=== PATIENT | male | born 1970 | race Caucasian/White ===

== ENCOUNTER 2018-04-12 15:43 | Observation (INO) | payer OTHER ==
[~2018-04-12] VITALS: Ht 170.2 cm; Wt 84.1 kg
[~2018-04-12 15:43] MED LIST: ATOR-54 PO
[2018-04-12] MEDS ORDERED: SODIUM CHLORIDE 0.9% 1000ML 1,000 ML IV STA ×2 (16:06→17:37)
--- NOTE | 2018-04-12 16:07 | EMERGENCY ROOM VISIT NOTE ---
History Report prepared by Lena: Papa Rodriguez Under the Supervision of: Dr. Suleman Chandra M.D. First contact with patient: 15:55 Chief Complaint: DIARRHEA Stated Complaint: LIMA SIERRA WAS HERE ON 04/08 FOR SALMONELLA History of Present Illness The patient is a 47 year old male who presents to the Emergency Room with complaints of intermittent diarrhea beginning a few weeks ago. The patient states he was at a picnic a few weeks ago and ate pulled pork. He reports he was evaluated on and diagnosed with salmonella poisoning. The patient notes he had low potassium and was in [place]. He states he followed up with his PCP , has been drinking Gatorade, and finished a full course of Bactrim to try and overcome the salmonella food poisoning. The patient reports he is able to keep food down now, but it runs right through him. He denies vomiting, bloody stool, and black stool. Source of History: patient Onset: a few weeks ago Quality: other (diarrhea) Timing: intermittent Modifying Factors (Worsening): eating, drinking Associated Symptoms: No vomiting Note: Denies: bloody stool, black stool Review of Systems See HPI for pertinent positives and negatives. A total of ten systems were reviewed and were otherwise negative. Past Medical & Surgical Medical Problems: (1) HLD (hyperlipidemia) (2) Hyperlipidemia Family History FH: hyperlipidemia Hypertension Social History Smoking Status: Never Smoker Marital Status: Housing Status: lives with family Current/Historical Medications Scheduled Atorvastatin (Lipitor), 20 MG PO DAILY Allergies Coded Allergies: No Known Allergies (Unverified , 04/08/18) Physical Exam Vital Signs Date Time Temp Pulse Resp B/P (MAP) Pulse Ox O2 Delivery O2 Flow Rate FiO2 04/12/18 17:23 77 16 124/74 97 Room Air 04/12/18 15:49 37.2 102 18 114/59 96 Room Air Physical Exam Physical Exam GENERAL: He is oriented to person, place, and time. He appears well-developed and well-nourished. He does not appear distressed. HENT: Exam performed. Head: Normocephalic and atraumatic. Right Ear: External ear normal. No mastoid tenderness. Left Ear: External ear normal. No mastoid tenderness. Mouth/Throat: The oropharynx is clear and moist. No trismus in the jaw. No dental abscesses or uvula swelling. No oropharyngeal exudate or tonsillar abscesses. EYES: Conjunctivae and EOM are normal. Pupils are equal, round, and reactive to light. Right eye exhibits no discharge. Left eye exhibits no discharge. No scleral icterus. NECK: Normal range of motion. Neck supple. No JVD present. No spinous process tenderness present. No carotid bruit present. No rigidity. No tracheal deviation and normal range of motion present. No Brudzinski's sign and no Kernig 's sign noted. CV: Normal rate, regular rhythm, normal heart sounds and intact distal pulses. There is no peripheral edema. Palpable radial pulses bue. PULM/CHEST: Effort normal and breath sounds normal. No respiratory distress. No stridor. He has no wheezes. He has no rales. Chest Wall: He exhibits no tenderness. ABD: The abdomen is soft. Bowel sounds are normal. He has no distension. No mass is present. There is no tenderness. There is no rebound, no guarding, no Jim's sign and no tenderness at McBurney's point. Rovsig negative. MUSC/SKEL: Normal range of motion. There is no peripheral edema, tenderness or deformity. LYMPH: No cervical adenopathy. NEURO: He is alert and oriented to person, place, and time. He has normal strength. No cranial nerve deficit or sensory deficit. Coordination and gait normal. GCS eye subscore is 4. GCS verbal subscore is 5. GCS motor subscore is 6. Cerebellar tests wnl. SKIN: Skin is warm and dry. He is not diaphoretic. PSYCH: He has a normal mood and affect. Behavior is normal. Judgment and thought content normal. Medical Decision & Procedures Laboratory Results 04/12/18 16:26 Red Blood Count 4.89, Mean Corpuscular Volume 82.0, Mean Corpuscular Hemoglobin 29.0, Mean Corpuscular Hemoglobin Concent 35.4, Mean Platelet Volume 9.8, Neutrophils (%) (Auto) 82.2, Lymphocytes (%) (Auto) 7.8, Monocytes (%) (Auto) 8.1, Eosinophils (%) (Auto) 0.6, Basophils (%) (Auto) 0.2, Neutrophils # (Auto) 10.62, Lymphocytes # (Auto) 1.01, Monocytes # (Auto) 1.05, Eosinophils # (Auto) 0.08, Basophils # (Auto) 0.03 04/12/18 16:26 Test 04/12/18 16:26 White Blood Count 12.93 K/uL (4.8-10.8) Red Blood Count 4.89 M/uL (4.7-6.1) Hemoglobin 14.2 g/dL (14.0-18.0) Hematocrit 40.1 % (42-52) Mean Corpuscular Volume 82.0 fL (80-100) Mean Corpuscular Hemoglobin 29.0 pg (25-34) Mean Corpuscular Hemoglobin Concent 35.4 g/dl (32-36) Platelet Count 251 K/uL (130-400) Mean Platelet Volume 9.8 fL (7.4-10.4) Neutrophils (%) (Auto) 82.2 % Lymphocytes (%) (Auto) 7.8 % Monocytes (%) (Auto) 8.1 % Eosinophils (%) (Auto) 0.6 % Basophils (%) (Auto) 0.2 % Neutrophils # (Auto) 10.62 K/uL (1.4-6.5) Lymphocytes # (Auto) 1.01 K/uL (1.2-3.4) Monocytes # (Auto) 1.05 K/uL (0.11-0.59) Eosinophils # (Auto) 0.08 K/uL (0-0.5) Basophils # (Auto) 0.03 K/uL (0-0.2) RDW Standard Deviation 38.9 fL (36.4-46.3) RDW Coefficient of Variation 12.9 % (11.5-14.5) Immature Granulocyte % (Auto) 1.1 % Immature Granulocyte # (Auto) 0.14 K/uL (0.00-0.02) Anion Gap 8.0 mmol/L (3-11) Est Creatinine Clear Calc Drug Dose 67.4 ml/min Estimated GFR () 69.0 Estimated GFR (Non- 59.5 BUN/Creatinine Ratio 6.8 (10-20) Lactic Acid Level 1.5 mmol/L (0.4-2.0) Calcium Level 9.4 mg/dl (8.5-10.1) Total Bilirubin 0.6 mg/dl (0.2-1) Direct Bilirubin 0.2 mg/dl (0-0.2) Aspartate Amino Transf (AST/SGOT) 23 U/L (15-37) Alanine Aminotransferase (ALT/SGPT) 37 U/L (12-78) Alkaline Phosphatase 89 U/L (45-117) Total Protein 7.8 gm/dl (6.4-8.2) Albumin 3.6 gm/dl (3.4-5.0) Lipase 559 U/L (73-393) Laboratory results reviewed by me Medications Administered Medications (Trade) Dose Ordered Sig/Kingsley Route Start Time Stop Time Status Last Admin Dose Admin Sodium Chloride 1,000 ml @ 999 mls/hr Q1H1M STAT IV 04/12/18 16:06 04/12/18 17:06 DC 04/12/18 16:06 999 MLS/HR Ciprofloxacin/ Dextrose (Cipro / D5W) 400 mg NOW STAT IV 04/12/18 17:05 04/12/18 17:06 DC 04/12/18 17:23 400 MG Acetaminophen (Tylenol Tab) 1,000 mg NOW STAT PO 04/12/18 17:26 04/12/18 17:27 DC 04/12/18 17:32 1,000 MG Potassium Chloride (Klor-Con M10) 20 meq NOW STAT PO 04/12/18 17:26 04/12/18 17:27 DC 04/12/18 17:32 20 MEQ Sodium Chloride 1,000 ml @ 125 mls/hr Q8H STAT IV 04/12/18 17:37 04/12/18 19:24 DC 04/12/18 17:51 125 MLS/HR ED Course 1603: The patient was evaluated in room C03. A complete history and physical exam was performed. 1606: Ordered Sodium Chloride 1000 ml @ 999 mls/hr IV 1705: Ordered Cipro/D5W 400mg IV 1706: Vital signs stable. In the ED the patient had multiple loose BMs. Labs show mild leukocytosis of 12.9, hypokalemia of 3.3, a sodium of 130, and a lipase of 559. Repeat abdominal exam shows no tenderness to palpation. I discussed the option of outpatient treatment with Cipro. I also offered hospitalization for continuous IV fluid. The patient elected to stay in the hospital since he has not gotten better. 1726: Ordered Potassium Chloride 20meq PO, Acetaminophen 1000mg PO 173: Ordered Sodium Chloride 1000 ml @ 125 mls/hr IV 173: I discussed the patient's case with Pamela Real PA-C, [facility]. The patient will be evaluated for further management and care. Medical Decision Vital signs stable. In the ED the patient had multiple loose BMs. Labs show mild leukocytosis of 12.9, hypokalemia of 3.3, a sodium of 130, and a lipase of 559. Repeat abdominal exam shows no tenderness to palpation. I discussed the option of outpatient treatment with Cipro. I also offered hospitalization for continuous IV fluid. The patient elected to stay in the hospital since he has not gotten better. Medication Reconcilliation Current Medication List: was personally reviewed by me Blood Pressure Screening Patient's blood pressure: Normal blood pressure Blood pressure disposition: Did not require urgent referral Consults Time Called: 1734 Consulting Physician: Pamela Real PA-C, [facility] Returned Call: 1738 I discussed the patient's case with Pamela Real PA-C, [facility]. The patient will be evaluated for further management and care. Impression Primary Impression: Salmonella food poisoning Additional Impression: Failure of outpatient treatment Scribe Attestation The scribe's documentation has been prepared under my direction and personally reviewed by me in its entirety. I confirm that the note above accurately reflects all work, treatment, procedures, and medical decision making performed by me. The chart was completed utilizing [employer] Speech voice recognition software. Grammatical errors, random word insertions, pronoun errors, and incomplete sentences are an occasional consequence of this system due to software limitations, ambient noise, and hardware issues. Any formal questions or concerns about the content, text, or information contained within the body of this dictation should be directly addressed to the physician for clarification. Departure Information Dispostion Being Evaluated By Hospitalist Referrals No Doctor, Assigned (PCP) Patient Instructions [facility] Problem Qualifiers
[2018-04-12 16:40] LABS: BASO % 0.2 %; BASO ABS # 0.03 K/uL (0-0.2); EOS % 0.6 %; EOS ABS # 0.08 K/uL (0-0.5); HEMATOCRIT 40.1 % (42-52); HEMOGLOBIN 14.2 g/dL (14.0-18.0); IG# 0.14 K/uL (0.00-0.02); LYMPH % 7.8 %; LYMPH ABS # 1.01 K/uL (1.2-3.4); MEAN CORPUSCULAR HGB CONC 35.4 g/dl (32-36); MEAN PLATELET VOLUME 9.8 fL (7.4-10.4); MONO % 8.1 %; MONO ABS # 1.05 K/uL (0.11-0.59); NEUT % 82.2 %; NEUT ABS # 10.62 K/uL (1.4-6.5); PLATELET COUNT 251 K/uL (130-400); RED CELL DISTRIBUTION WIDTH CV 12.9 % (11.5-14.5); RED CELL DISTRIBUTION WIDTH SD 38.9 fL (36.4-46.3); WHITE BLOOD COUNT 12.93 K/uL (4.8-10.8)
[2018-04-12 17:00] LABS: ALBUMIN 3.6 gm/dl (3.4-5.0); CALCIUM 9.4 mg/dl (8.5-10.1); CREATININE 1.39 mg/dl (0.60-1.40); POTASSIUM 3.3 mmol/L (3.5-5.1); TOTAL PROTEIN 7.8 gm/dl (6.4-8.2)
[2018-04-12] MEDS ORDERED: CIPROFLOXACIN 400MG / 200ML D5W IV STA (17:05)
[2018-04-12] MEDS ORDERED: POTASSIUM CHLORIDE 10 MEQ TABCR PO STA (17:26)
[2018-04-12] MEDS ORDERED: ACETAMINOPHEN 500 MG TAB PO STA (17:26)
--- NOTE | 2018-04-12 18:25 | History and Physical ---
History & Physical Date & Time of Service: Apr 12, 2018 at 18:25 Chief Complaint: Diahrrea,Nausea Was Here On 04/08 For Salmonella Primary Care Physician: No Doctor, Assigned History of Present Illness Source: patient, clinic records, hospital records This is a 47-year-old male with a PMH of HLD who presents with persistent diarrhea 10 days. Patient attended a local picnic on 04/02 and ate pulled pork with reported salmonella. Was prescribed Bactrim by a family friend but diarrhea has continued. Was seen in the ED on 04/08 and was found to be dehydrated with hypokalemia and KAREEN. Was instructed to drink Gatorade and follow -up with PCP. Still having approximately 6-7 episodes of diarrhea that are green and liquid in consistency. No candice abdominal pain but reports cramping before diarrhea. Continues to have nausea but no vomiting. Able to tolerate bland solid foods like rice and bread. Has some lightheadedness with standing and generalized weakness. Denies fever, chills, visual changes, chest pain, shortness of breath, hematemesis, dysuria, melena, hematochezia or LE swelling. Patient just moved to the area and is in the process of establishing care with Dr. Montague. Past Medical/Surgical History Medical Problems: (1) HLD (hyperlipidemia) Status: Chronic Family History FH: hyperlipidemia Hypertension Social History Smoking Status: Never Smoker Alcohol Use: none Marital Status: Housing status: lives with significant other Allergies Coded Allergies: No Known Allergies (Unverified , 04/08/18) Home Medications Scheduled Atorvastatin (Lipitor), 20 MG PO DAILY Review of Systems Ten systems reviewed and negative except as noted in the HPI. Physical Exam Vital Signs Date Time Temp Pulse Resp B/P (MAP) Pulse Ox O2 Delivery O2 Flow Rate FiO2 04/12/18 17:23 77 16 124/74 97 Room Air 04/12/18 15:49 37.2 102 18 114/59 96 Room Air General Appearance: WD/WN, + mild distress Head: normocephalic, atraumatic Eyes: normal inspection, PERRL, sclerae normal ENT: normal ENT inspection, hearing grossly normal, pharynx normal (dry mucous membranes ) Neck: supple, thyroid normal, trachea midline Respiratory/Chest: chest non-tender, lungs clear, normal breath sounds, no respiratory distress, no accessory muscle use Cardiovascular: regular rate, rhythm, normal peripheral pulses Abdomen/GI: normal bowel sounds, non tender, soft, no organomegaly Back: normal inspection Extremities/Musculoskelatal: normal inspection, no calf tenderness, no pedal edema Neurologic/Psych: no motor/sensory deficits, alert, normal mood/affect, oriented x 3 Skin: normal color, warm/dry, no rash Diagnostics Laboratory Results Results Past 24 Hours Test 04/12/18 16:26 Range/Units White Blood Count 12.93 4.8-10.8 K/uL Red Blood Count 4.89 4.7-6.1 M/uL Hemoglobin 14.2 14.0-18.0 g/dL Hematocrit 40.1 42-52 % Mean Corpuscular Volume 82.0 80-100 fL Mean Corpuscular Hemoglobin 29.0 25-34 pg Mean Corpuscular Hemoglobin Concent 35.4 32-36 g/dl Platelet Count 251 130-400 K/uL Mean Platelet Volume 9.8 7.4-10.4 fL Neutrophils (%) (Auto) 82.2 % Lymphocytes (%) (Auto) 7.8 % Monocytes (%) (Auto) 8.1 % Eosinophils (%) (Auto) 0.6 % Basophils (%) (Auto) 0.2 % Neutrophils # (Auto) 10.62 1.4-6.5 K/uL Lymphocytes # (Auto) 1.01 1.2-3.4 K/uL Monocytes # (Auto) 1.05 0.11-0.59 K/uL Eosinophils # (Auto) 0.08 0-0.5 K/uL Basophils # (Auto) 0.03 0-0.2 K/uL RDW Standard Deviation 38.9 36.4-46.3 fL RDW Coefficient of Variation 12.9 11.5-14.5 % Immature Granulocyte % (Auto) 1.1 % Immature Granulocyte # (Auto) 0.14 0.00-0.02 K/uL Sodium Level 130 136-145 mmol/L Potassium Level 3.3 3.5-5.1 mmol/L Chloride Level 97 98-107 mmol/L Carbon Dioxide Level 25 21-32 mmol/L Anion Gap 8.0 3-11 mmol/L Blood Urea Nitrogen 10 7-18 mg/dl Creatinine 1.39 0.60-1.40 mg/dl Est Creatinine Clear Calc Drug Dose 67.4 ml/min Estimated GFR () 69.0 Estimated GFR (Non- 59.5 BUN/Creatinine Ratio 6.8 10-20 Random Glucose 95 70-99 mg/dl Lactic Acid Level 1.5 0.4-2.0 mmol/L Calcium Level 9.4 8.5-10.1 mg/dl Total Bilirubin 0.6 0.2-1 mg/dl Direct Bilirubin 0.2 0-0.2 mg/dl Aspartate Amino Transf (AST/SGOT) 23 15-37 U/L Alanine Aminotransferase (ALT/SGPT) 37 12-78 U/L Alkaline Phosphatase 89 45-117 U/L Total Protein 7.8 6.4-8.2 gm/dl Albumin 3.6 3.4-5.0 gm/dl Lipase 559 73-393 U/L Impression Assessment and Plan This is a 47-year-old male with a PMH of HLD who presents with persistent diarrhea 10 days due to salmonella infection. Infectious diarrhea 2/2 food poisoning -Diarrhea x 10 days following eating at [facility] with confirmed cases of salmonella -Completed course of Bactrim but continued to have 6-7 episodes of diarrhea daily -Hemodynamically stable with mild tachycardia, improved with IV fluids -Leukocytosis of 12.9 -IV cipro initiated--continue -Continue IV fluids, antiemetics -[place] diet Electrolyte abnormalities Dehydration -2/2 persistent diarrhea -Hyponatremia of 130 -Hypokalemia of 3.3 -Kidney function improving since 04/08 -Cr now 1.39, previously 2 -Replace with IV fluids -Repeat labs in AM HLD -Cont statin DVT Ppx: curt layne Code status: FULL PCP: Establishing care with Dr. Montague Dispo: Observation med/surg. Plan to return home once medically stable. Patient seen in collaboration with Dr. Moncada. Please see addendum. Attending addendum The patient was seen and examined in the ER Has been complaining of diarrhea from 6-10 times a day for the last 10 days Condition got worse today Denies to any fever, abdominal distention, any chest pain or shortness of breath On examination Hemodynamically stable Chest-clear to auscultate bilaterally Heart-regular Abdomen-not distended, soft, mildly tender all over, bowel sounds present Extremities-negative for any edema Labs and imaging studies reviewed Has gastroenteritis likely secondary to Salmonella Agree with assessment and plan Dr. Bethany Moncada Resuscitation Status VTE Prophylaxis Will order VTE Prophylaxis: Yes
[2018-04-12] MEDS ORDERED: ONDANSETRON INJ 2 MG/ML 2 ML VIAL IV PRN (18:30)
[2018-04-12] MEDS ORDERED: ACETAMINOPHEN 325 MG TAB PO PRN (18:30)
[2018-04-12] MEDS ORDERED: CIPROFLOXACIN CONSULT ACTIVE PRN (18:31)
[2018-04-12 19:15] VITALS: BP 115/74; PULSE 80; TEMP 36.9; O2SAT 96; Ht 170.2 cm; Wt 84.1 kg
[2018-04-12 19:24] VITALS: BP 115/74; PULSE 80; TEMP 36.9; O2SAT 96
[2018-04-12] MEDS ORDERED: IV FLUIDS COMPLETED PRN (19:30)
[2018-04-12] MEDS: NSS + 20MEQ KCL 1000ML 1,000 ML IV SCH (19:40)
[2018-04-12] MEDS: ATORVASTATIN 20 MG TAB PO SCH (20:28)
[2018-04-12 23:36] VITALS: BP 105/65; PULSE 79; TEMP 36.9; O2SAT 98
[2018-04-13] MEDS: NSS + 20MEQ KCL 1000ML 1,000 ML IV SCH ×3 (03:34→19:26)
[2018-04-13 05:56] LABS: HEMATOCRIT 38.4 % (42-52); HEMOGLOBIN 13.2 g/dL (14.0-18.0); MEAN CELL VOLUME 84.2 fL (80-100); MEAN CORPUSCULAR HEMOGLOBIN 28.9 pg (25-34); MEAN CORPUSCULAR HGB CONC 34.4 g/dl (32-36); PLATELET COUNT 230 K/uL (130-400); RED CELL DISTRIBUTION WIDTH CV 13.3 % (11.5-14.5); RED CELL DISTRIBUTION WIDTH SD 40.1 fL (36.4-46.3); WHITE BLOOD COUNT 12.83 K/uL (4.8-10.8)
[2018-04-13] MEDS: CIPROFLOXACIN 400MG / D5W IV SCH ×2 (06:09→18:00)
[2018-04-13 06:31] LABS: CALCIUM 8.4 mg/dl (8.5-10.1); CREATININE 1.28 mg/dl (0.60-1.40); POTASSIUM 4.2 mmol/L (3.5-5.1); TOTAL PROTEIN 6.6 gm/dl (6.4-8.2)
[2018-04-13 07:34] VITALS: BP 103/66; PULSE 80; TEMP 36.8; O2SAT 97
[2018-04-13] MEDS ORDERED: ATORVASTATIN 20 MG TAB PO SCH (08:00)
--- NOTE | 2018-04-13 12:17 | Progress Note ---
Internal Med Progress Note Date of Service: Apr 13, 2018. Provider Documentation: SUBJECTIVE: The patient was seen and examined in medical floor He was admitted yesterday with them ongoing abdominal discomfort and diarrhea for the last 10 days Has had dehydration and electrolyte imbalance on admission Still having diarrhea about 6-10 times daily Feels a little better clinically OBJECTIVE: Vital Signs-as noted below Exam: General-no apparent distress Eyes-normal ENT-normal Neck-supple Lungs-clear to auscultation bilaterally Heart-regular, no murmur appreciated Abdomen-benign, soft, mildly tender all over especially left lower quadrant Extremities-no edema Neuro-alert, awake and oriented 3 No focal sensory and/or motor deficit appreciated Lab data as noted below. ASSESSMENT & PLAN: This is a 47-year-old male with a PMH of HLD who presents with persistent diarrhea 10 days due to salmonella infection. Infectious diarrhea 2/2 food poisoning -Diarrhea x 10 days following eating at [facility] with confirmed cases of salmonella -Completed course of Bactrim but continued to have 6-7 episodes of diarrhea daily -Hemodynamically stable with mild tachycardia, improved with IV fluids -Leukocytosis of 12.9 -IV cipro initiated--continue -Continue IV fluids, antiemetics -Clinically better but diarrhea is not yet controlled -We will check a stool for culture and C. difficile colitis toxin -If negative will give Imodium to control diarrhea Electrolyte abnormalities Dehydration -2/2 persistent diarrhea -Hyponatremia of 130 -Hypokalemia of 3.3 -Kidney function improving since 04/08 -Cr now 1.39, previously 2 -Replace with IV fluids -Electrolytes are improved -Continue current IV fluid HLD -Cont statin DVT Ppx: curt layne Code status: FULL PCP: Establishing care with Dr. Montague Dispo: Observation med/surg. Plan to return home once medically stable. Likely discharge tomorrow if diarrhea is controlled Vital Signs: Date Time Temp Pulse Resp B/P (MAP) Pulse Ox O2 Delivery O2 Flow Rate FiO2 04/13/18 08:00 Room Air 04/13/18 07:34 36.8 80 18 103/66 (78) 97 04/13/18 00:00 Room Air 04/12/18 23:36 36.9 79 18 105/65 (78) 98 Room Air 04/12/18 19:24 36.9 80 18 115/74 (88) 96 Room Air 04/12/18 19:15 36.9 80 14 115/74 96 Room Air 04/12/18 18:31 81 16 124/70 98 Room Air 04/12/18 17:23 77 16 124/74 97 Room Air 04/12/18 15:49 37.2 102 18 114/59 96 Room Air Lab Results: Results Past 24 Hours Test 04/12/18 16:26 04/13/18 05:19 Range/Units White Blood Count 12.93 12.83 4.8-10.8 K/uL Red Blood Count 4.89 4.56 4.7-6.1 M/uL Hemoglobin 14.2 13.2 14.0-18.0 g/dL Hematocrit 40.1 38.4 42-52 % Mean Corpuscular Volume 82.0 84.2 80-100 fL Mean Corpuscular Hemoglobin 29.0 28.9 25-34 pg Mean Corpuscular Hemoglobin Concent 35.4 34.4 32-36 g/dl Platelet Count 251 230 130-400 K/uL Mean Platelet Volume 9.8 10.0 7.4-10.4 fL Neutrophils (%) (Auto) 82.2 % Lymphocytes (%) (Auto) 7.8 % Monocytes (%) (Auto) 8.1 % Eosinophils (%) (Auto) 0.6 % Basophils (%) (Auto) 0.2 % Neutrophils # (Auto) 10.62 1.4-6.5 K/uL Lymphocytes # (Auto) 1.01 1.2-3.4 K/uL Monocytes # (Auto) 1.05 0.11-0.59 K/uL Eosinophils # (Auto) 0.08 0-0.5 K/uL Basophils # (Auto) 0.03 0-0.2 K/uL RDW Standard Deviation 38.9 40.1 36.4-46.3 fL RDW Coefficient of Variation 12.9 13.3 11.5-14.5 % Immature Granulocyte % (Auto) 1.1 % Immature Granulocyte # (Auto) 0.14 0.00-0.02 K/uL Sodium Level 130 135 136-145 mmol/L Potassium Level 3.3 4.2 3.5-5.1 mmol/L Chloride Level 97 106 98-107 mmol/L Carbon Dioxide Level 25 25 21-32 mmol/L Anion Gap 8.0 4.0 3-11 mmol/L Blood Urea Nitrogen 10 7 7-18 mg/dl Creatinine 1.39 1.28 0.60-1.40 mg/dl Est Creatinine Clear Calc Drug Dose 67.4 73.2 ml/min Estimated GFR () 69.0 76.2 Estimated GFR (Non- 59.5 65.7 BUN/Creatinine Ratio 6.8 5.4 10-20 Random Glucose 95 85 70-99 mg/dl Lactic Acid Level 1.5 0.4-2.0 mmol/L Calcium Level 9.4 8.4 8.5-10.1 mg/dl Total Bilirubin 0.6 0.6 0.2-1 mg/dl Direct Bilirubin 0.2 0-0.2 mg/dl Aspartate Amino Transf (AST/SGOT) 23 21 15-37 U/L Alanine Aminotransferase (ALT/SGPT) 37 36 12-78 U/L Alkaline Phosphatase 89 91 45-117 U/L Total Protein 7.8 6.6 6.4-8.2 gm/dl Albumin 3.6 3.0 3.4-5.0 gm/dl Lipase 559 73-393 U/L Globulin 3.6 2.5-4.0 gm/dl Albumin/Globulin Ratio 0.8 0.9-2
[2018-04-13] MEDS: LOPERAMIDE HCL 2 MG CAP PO PRN ×2 (16:09→20:10)
[2018-04-13] MEDS: ATORVASTATIN 20 MG TAB PO SCH (20:10)
[2018-04-13 23:54] VITALS: BP 106/68; PULSE 83; TEMP 37.1; O2SAT 96
[2018-04-14] MEDS: NSS + 20MEQ KCL 1000ML 1,000 ML IV SCH ×2 (03:25→11:30)
[2018-04-14] MEDS: CIPROFLOXACIN 400MG / D5W IV SCH (06:03)
[2018-04-14 06:37] LABS: BASO % 0.3 %; BASO ABS # 0.03 K/uL (0-0.2); EOS ABS # 0.11 K/uL (0-0.5); HEMATOCRIT 36.6 % (42-52); HEMOGLOBIN 12.1 g/dL (14.0-18.0); IG# 0.09 K/uL (0.00-0.02); LYMPH % 16.3 %; LYMPH ABS # 1.73 K/uL (1.2-3.4); MEAN CELL VOLUME 86.5 fL (80-100); MEAN CORPUSCULAR HEMOGLOBIN 28.6 pg (25-34); MEAN CORPUSCULAR HGB CONC 33.1 g/dl (32-36); MEAN PLATELET VOLUME 9.5 fL (7.4-10.4); MONO % 8.4 %; MONO ABS # 0.89 K/uL (0.11-0.59); NEUT % 73.2 %; NEUT ABS # 7.74 K/uL (1.4-6.5); PLATELET COUNT 215 K/uL (130-400); RED CELL DISTRIBUTION WIDTH CV 13.5 % (11.5-14.5); WHITE BLOOD COUNT 10.59 K/uL (4.8-10.8)
[2018-04-14 06:52] LABS: CALCIUM 8.2 mg/dl (8.5-10.1); CREATININE 1.05 mg/dl (0.60-1.40); PHOSPHORUS 2.6 mg/dl (2.5-4.9); POTASSIUM 4.4 mmol/L (3.5-5.1)
[2018-04-14 07:31] VITALS: BP 104/71; PULSE 72; TEMP 36.6; O2SAT 97
--- NOTE | 2018-04-14 10:18 | Progress Note ---
Internal Med Progress Note Date of Service: Apr 14, 2018. Provider Documentation: SUBJECTIVE: The patient was seen and examined in medical floor He was admitted yesterday with them ongoing abdominal discomfort and diarrhea for the last 10 days Has had dehydration and electrolyte imbalance on admission Still having diarrhea about 6-10 times daily Feels a little better clinically 04/14 Clinically a lot better Diarrhea is controlled Denies to any abdominal pain any nausea and/or vomiting Tolerating regular diet OBJECTIVE: Vital Signs-as noted below Exam: General-no apparent distress Eyes-normal ENT-normal Neck-supple Lungs-clear to auscultation bilaterally Heart-regular, no murmur appreciated Abdomen-benign, soft, no tenderness, bowel sounds present Extremities-no edema Neuro-alert, awake and oriented 3 No focal sensory and/or motor deficit appreciated Lab data as noted below. ASSESSMENT & PLAN: This is a 47-year-old male with a PMH of HLD who presents with persistent diarrhea 10 days due to salmonella infection. Infectious diarrhea 2/2 food poisoning -Diarrhea x 10 days following eating at [facility] with confirmed cases of salmonella -Completed course of Bactrim but continued to have 6-7 episodes of diarrhea daily -Hemodynamically stable with mild tachycardia, improved with IV fluids -Leukocytosis of 12.9-resolved -IV cipro initiated--continue for 3 days in total -Continue IV fluids, antiemetics -Clinically better but diarrhea is not yet controlled -We will check a stool for culture and C. difficile colitis toxin -If negative will give Imodium to control diarrhea -Stool for C. difficile toxin has been negative -Stool culture pending -Clinically better and will send him home today Electrolyte abnormalities Dehydration -2/2 persistent diarrhea -Hyponatremia of 130 -Hypokalemia of 3.3 -Kidney function improving since 04/08 -Cr now 1.39, previously 2 -Replace with IV fluids -Electrolytes are improved -Continue current IV fluid -No more electrolyte abnormality HLD -Cont statin DVT Ppx: curt [email or web address] Code status: FULL PCP: Establishing care with Dr. Montague Dispo: Observation med/surg. Plan to return home once medically stable. Discharge today, has appointment with Dr. Montague Vital Signs: Date Time Temp Pulse Resp B/P (MAP) Pulse Ox O2 Delivery O2 Flow Rate FiO2 04/14/18 07:31 36.6 72 16 104/71 (82) 97 04/13/18 23:59 Room Air 04/13/18 23:54 37.1 83 17 106/68 (81) 96 Room Air 04/13/18 16:00 Room Air Lab Results: Results Past 24 Hours Test 04/14/18 06:07 Range/Units White Blood Count 10.59 4.8-10.8 K/uL Red Blood Count 4.23 4.7-6.1 M/uL Hemoglobin 12.1 14.0-18.0 g/dL Hematocrit 36.6 42-52 % Mean Corpuscular Volume 86.5 80-100 fL Mean Corpuscular Hemoglobin 28.6 25-34 pg Mean Corpuscular Hemoglobin Concent 33.1 32-36 g/dl Platelet Count 215 130-400 K/uL Mean Platelet Volume 9.5 7.4-10.4 fL Neutrophils (%) (Auto) 73.2 % Lymphocytes (%) (Auto) 16.3 % Monocytes (%) (Auto) 8.4 % Eosinophils (%) (Auto) 1.0 % Basophils (%) (Auto) 0.3 % Neutrophils # (Auto) 7.74 1.4-6.5 K/uL Lymphocytes # (Auto) 1.73 1.2-3.4 K/uL Monocytes # (Auto) 0.89 0.11-0.59 K/uL Eosinophils # (Auto) 0.11 0-0.5 K/uL Basophils # (Auto) 0.03 0-0.2 K/uL RDW Standard Deviation 43.0 36.4-46.3 fL RDW Coefficient of Variation 13.5 11.5-14.5 % Immature Granulocyte % (Auto) 0.8 % Immature Granulocyte # (Auto) 0.09 0.00-0.02 K/uL Sodium Level 142 136-145 mmol/L Potassium Level 4.4 3.5-5.1 mmol/L Chloride Level 113 98-107 mmol/L Carbon Dioxide Level 24 21-32 mmol/L Anion Gap 5.0 3-11 mmol/L Blood Urea Nitrogen 8 7-18 mg/dl Creatinine 1.05 0.60-1.40 mg/dl Est Creatinine Clear Calc Drug Dose 89.2 ml/min Estimated GFR () 96.8 Estimated GFR (Non- 83.5 BUN/Creatinine Ratio 7.1 10-20 Random Glucose 89 70-99 mg/dl Calcium Level 8.2 8.5-10.1 mg/dl Phosphorus Level 2.6 2.5-4.9 mg/dl Magnesium Level 2.1 1.8-2.4 mg/dl Microbiology Results 04/13/18 C.difficile Toxin B Gene (PCR) - Final, Complete No C. difficile toxin B gene detected 04/13/18 Shiga Toxin Test, Received Pending 04/13/18 Stool Culture, Received Pending
--- NOTE | 2018-04-14 10:37 | Discharge Instructions ---
Discharge Instructions Date of Service Apr 14, 2018. Admission Reason for Admission: Dehydration, Diarrhea, Hypokalemia Discharge Discharge Diagnosis / Problem: Gastroenteritis-resolved ,Neg C Diff Discharge Goals Goal(s): Prevent Disease Progression Activity Recommendations Activity Limitations: resume your previous activity . Instructions / Follow-Up Instructions / Follow-Up Please keep appointment with Dr Montague Current Hospital Diet Patient's current hospital diet: Regular Diet Discharge Diet Recommended Diet: Regular Diet Pending Studies Studies pending at discharge: no Medical Emergencies . Who to Call and When: Medical Emergencies: If at any time you feel your situation is an emergency, please call 911 immediately. . Non-Emergent Contact Non-Emergency issues call your: Primary Care Provider . Past History Medical & Surgical History: (1) Gastroenteritis (2) Dehydration (3) HLD (hyperlipidemia) . "Provider Documentation" section prepared by Sakina Moncada. .
[2018-04-14 10:55] VITALS: BP 104/71; PULSE 72; TEMP 36.6; O2SAT 97
--- NOTE | 2018-04-15 11:25 | Discharge Summary ---
Discharge Summary Date of Service Apr 15, 2018. Discharge Summary Admission Date: Apr 12, 2018 at 18:22 Discharge Date: Apr 14, 2018 Discharge Disposition: Home Principal Diagnosis: Gastroenteritis-resolved ,Neg C Diff Secondary Diagnoses/Problems: Please see H&P and Hospital Progress note Medication Reconciliation Continued Medications: Atorvastatin (Lipitor) 20 Mg Tab 20 MG PO DAILY, TAB Admission Information HPI (per Admitting provider): This is a 47-year-old male with a PMH of HLD who presents with persistent diarrhea 10 days. Patient attended a local picnic on 04/02 and ate pulled pork with reported salmonella. Was prescribed Bactrim by a family friend but diarrhea has continued. Was seen in the ED on 04/08 and was found to be dehydrated with hypokalemia and KAREEN. Was instructed to drink Gatorade and follow -up with PCP. Still having approximately 6-7 episodes of diarrhea that are green and liquid in consistency. No candice abdominal pain but reports cramping before diarrhea. Continues to have nausea but no vomiting. Able to tolerate bland solid foods like rice and bread. Has some lightheadedness with standing and generalized weakness. Denies fever, chills, visual changes, chest pain, shortness of breath, hematemesis, dysuria, melena, hematochezia or LE swelling. Patient just moved to the area and is in the process of establishing care with Dr. Montague. Physical Exam (per Admitting): General Appearance: WD/WN, + mild distress Head: normocephalic, atraumatic Eyes: normal inspection, PERRL, sclerae normal ENT: normal ENT inspection, hearing grossly normal, pharynx normal (dry mucous membranes ) Neck: supple, thyroid normal, trachea midline Respiratory/Chest: chest non-tender, lungs clear, normal breath sounds, no respiratory distress, no accessory muscle use Cardiovascular: regular rate, rhythm, normal peripheral pulses Abdomen/GI: normal bowel sounds, non tender, soft, no organomegaly Back: normal inspection Extremities/Musculoskelatal: normal inspection, no calf tenderness, no pedal edema Neurologic/Psych: no motor/sensory deficits, alert, normal mood/affect, oriented x 3 Skin: normal color, warm/dry, no rash Hospital Course This is a 47-year-old male with a PMH of HLD who presents with persistent diarrhea 10 days due to salmonella infection. Infectious diarrhea 2/2 food poisoning -Diarrhea x 10 days following eating at [facility] with confirmed cases of salmonella -Completed course of Bactrim but continued to have 6-7 episodes of diarrhea daily -Hemodynamically stable with mild tachycardia, improved with IV fluids -Leukocytosis of 12.9-resolved -IV cipro initiated--continue for 3 days in total -Continue IV fluids, antiemetics -Clinically better but diarrhea is not yet controlled -We will check a stool for culture and C. difficile colitis toxin -If negative will give Imodium to control diarrhea -Stool for C. difficile toxin has been negative -Stool culture pending -Clinically better and will send him home today Electrolyte abnormalities Dehydration -2/2 persistent diarrhea -Hyponatremia of 130 -Hypokalemia of 3.3 -Kidney function improving since 04/08 -Cr now 1.39, previously 2 -Replace with IV fluids -Electrolytes are improved -Continue current IV fluid -No more electrolyte abnormality HLD -Cont statin DVT Ppx: curt layne Code status: FULL PCP: Establishing care with Dr. Montague Dispo: Observation med/surg. Plan to return home once medically stable. Discharge today, has appointment with Dr. Montague Total time spent on discharge = 35 minutes This includes examination of the patient, discharge planning, medication reconciliation, and communication with other providers. Discharge Instructions Date of Service Apr 14, 2018. Admission Reason for Admission: Dehydration, Diarrhea, Hypokalemia Discharge Discharge Diagnosis / Problem: Gastroenteritis-resolved ,Neg C Diff Discharge Goals Goal(s): Prevent Disease Progression Activity Recommendations Activity Limitations: resume your previous activity . Instructions / Follow-Up Instructions / Follow-Up Please keep appointment with Dr Montague Current Hospital Diet Patient's current hospital diet: Regular Diet Discharge Diet Recommended Diet: Regular Diet Pending Studies Studies pending at discharge: no Medical Emergencies . Who to Call and When: Medical Emergencies: If at any time you feel your situation is an emergency, please call 911 immediately. . Non-Emergent Contact Non-Emergency issues call your: Primary Care Provider . Past History Medical & Surgical History: (1) Gastroenteritis (2) Dehydration (3) HLD (hyperlipidemia) . "Provider Documentation" section prepared by Sakina Moncada. Additional Copies To Amado Montague MD
== END 2018-04-14 12:35 | disposition home or self-care (01) ==
LOC: C.EDB 15:44 → C.MS4W 18:22 → ENRESERV 18:39
PROVIDERS: ADMIT Internal Medicine; ATTEND Internal Medicine
DX: K52.9 Noninfective gastroenteritis and colitis, unspecified (principal); E78.5 Hyperlipidemia, unspecified; Z79.899 Other long term (current) drug therapy